=== PATIENT | male | born 1995 | race Hispanic/Latino ===

== ENCOUNTER 2020-12-13 15:12 | Emergency (ER) | payer OTHER ==
[2020-12-13] MEDS ORDERED: ACETAMINOPHEN 500 MG TABLET ONE (15:51)
[2020-12-13 17:24] LABS: APPEARANCE,URINE Clear (CLEAR); BILIRUBIN,URINE Negative (NEGATIVE); COLOR,URINE Yellow (YELLOW); GLUCOSE, URINE (UA) 250 mg/dL (NEGATIVE); KETONES,URINE Negative (NEGATIVE); LEUKOCYTE ESTERASE ,URINE Negative (NEGATIVE); NITRATE,URINE Negative (NEGATIVE); OCCULT BLOOD,URINE Negative (NEGATIVE); PROTEIN,URINE Negative (NEGATIVE)
[2020-12-13 17:41] LABS: RBC,URINE 0-1 /HPF (0-1); WBC,URINE 0-1 /HPF (0-1)
[2020-12-13 17:42] LABS: BACTERIA,URINE Rare /HPF (None Seen)
[2020-12-13 17:43] LABS: AMORPHOUS SEDIMENT,UR Rare /LPF (None Seen); SQUAMOUS EPITHELIAL CELL,UR Rare /HPF (0-2)
== END 2020-12-13 18:21 | disposition home or self-care (01) ==
LOC: EDH 15:12
DX: R07.89 Other chest pain (principal); M54.2 Cervicalgia; M62.838 Other muscle spasm; Z72.0 Tobacco use; V89.2XXA Person injured in unspecified motor-vehicle accident, traffic, initial encounter; Y93.89 Activity, other specified; Y92.89 Other specified places as the place of occurrence of the external cause; Y99.8 Other external cause status
CPT/HCPCS: 36415; 71046; 72040; 81001; 82550; 84484; 93005